=== PATIENT | male | born 1965 | race Caucasian/White ===

== ENCOUNTER 2018-01-03 19:13 | Emergency (ER) | payer OTHER ==
[~2018-01-03] VITALS: Ht 182.9 cm; Wt 81.7 kg
[~2018-01-03 19:13] MED LIST: CLARITIN10 MG PO; MULTIVITAMINS; NOHOMEMEDICATIONS; NORCO 5-325 TA1 EACH PO; PENICILLIN VK500 M1 PO; PREDNISONE 20 M20 M1 PO; ZANTAC 150MG T150 M1 PO
[2018-01-03] MEDS ORDERED: KEFLEX500 M1 PO (19:33)
[2018-01-03] MEDS ORDERED: NORCO 5-325 TA1 EACH PO (20:59)
== END 2018-01-03 21:22 | disposition home or self-care (01) ==
LOC: ER 19:13
DX: S61.411A Laceration without foreign body of right hand, initial encounter (principal); Z23 Encounter for immunization; Z90.49 Acquired absence of other specified parts of digestive tract; W26.8XXA Contact with other sharp object(s), not elsewhere classified, initial encounter; Y92.89 Other specified places as the place of occurrence of the external cause; Y93.89 Activity, other specified; Y99.8 Other external cause status